=== PATIENT | female | born 1990 | race Two or more races ===

== ENCOUNTER 2019-04-30 19:48 | Emergency (ER) | payer MEDICAID ==
[~2019-04-30] VITALS: Ht 157.5 cm; Wt 75.7 kg
[2019-04-30 19:51] VITALS: BP 110/52
== END 2019-04-30 23:28 | disposition left against medical advice (07) ==
LOC: ER 19:48
DX: R06.02 Shortness of breath (principal); D64.9 Anemia, unspecified; Z53.21 Procedure and treatment not carried out due to patient leaving prior to being seen by health care provider